=== PATIENT | female | born 1935 | race African-American/Black ===

== ENCOUNTER 2023-10-04 21:37 | Inpatient (IN) | payer MEDICARE ==
[2023-10-04] MEDS ORDERED: Acetaminophen 500 MG TAB ONE (22:04)
[2023-10-04 23:03] LABS: #Eosinphils 0.1 thou/uL (0.0-0.7); #Monocytes 0.4 thou/uL (0.11-0.59); #Neutrophils 5.3 thou/uL (1.40-6.50); %Basophils 0.6 % (0.0-1.0); %Eosinophils 1.1 % (0.0-10.0); %Lymphocytes 11.5 % (21.0-51.0); %Monocytes 5.9 % (0.0-10.0); %Neutrophils 80.6 % (42.0-75.0); Hematocrit 42.8 % (36.0-47.0); Hemoglobin 13.4 g/dL (12.0-16.0); Mean Corpuscular HGB CONC 31.3 g/dL (32.0-36.0); Mean Corpuscular Hemoglobin 28.8 pg (27.0-31.0); Mean Platelet Volume 10.1 fL (7.4-10.4); Platelet Count 253 10x3/uL (130-400); Red Blood Cell (RBC) Count 4.65 mill/uL (4.20-5.40); White Blood Cell (WBC) Count 6.6 10x3/uL (4.8-10.8)
[2023-10-04 23:17] LABS: ALT (SGPT) 13 U/L (8-55); AST (SGOT) 19 U/L (5-34); Albumin 3.9 g/dL (3.4-4.8); Alkaline Phosphatase 111 U/L (40-110); Anion Gap 16 mmol/L (10-20); BUN (Urea Nitrogen) 13 mg/dL (9.8-20.1); Bilirubin, Total 0.8 mg/dL (0.2-1.2); Calc. Creatinine Clearance 0 mL/min (70-130); Calcium 9.5 mg/dL (7.8-10.44); Carbon Dioxide 25 mmol/L (23-31); Chloride 106 mmol/L (98-107); Estimated GFR 48; Globulin 3.2 g/dL (2.4-3.5); Glucose 105 mg/dL (83-110); Potassium 4.6 mmol/L (3.5-5.1); Protein, Total 7.1 g/dL (5.8-8.1); Sodium 142 mmol/L (136-145)
[2023-10-04 23:18] LABS: Troponin I Less than 0.010 ng/mL (< 0.028)
[2023-10-05] MEDS ORDERED: Acetaminophen 325 MG TAB PO PRN (00:45)
[2023-10-05] MEDS ORDERED: Ondansetron PF 4 MG/2 ML Vial IVP PRN (00:45)
[2023-10-05] MEDS ORDERED: Ondansetron ODT 4 MG TAB SL PRN (00:45)
[2023-10-05] MEDS ORDERED: Acetaminophen 650 MG Suppository PR PRN (01:13)
[2023-10-05 03:13] LABS: #Monocytes 0.3 thou/uL (0.11-0.59); #Neutrophils 4.7 thou/uL (1.40-6.50); %Basophils 0.3 % (0.0-1.0); %Eosinophils 0.5 % (0.0-10.0); %Lymphocytes 15.2 % (21.0-51.0); %Neutrophils 78.7 % (42.0-75.0); Hematocrit 38.4 % (36.0-47.0); Hemoglobin 12.3 g/dL (12.0-16.0); Mean Corpuscular Hemoglobin 29.1 pg (27.0-31.0); Platelet Count 234 10x3/uL (130-400); Red Blood Cell (RBC) Count 4.22 mill/uL (4.20-5.40)
[2023-10-05 03:40] LABS: Troponin I Less than 0.010 ng/mL (< 0.028)
[2023-10-05 03:51] LABS: Anion Gap 7 mmol/L (10-20); BUN (Urea Nitrogen) 11 mg/dL (9.8-20.1); Calc. Creatinine Clearance 0 mL/min (70-130); Calcium 8.7 mg/dL (7.8-10.44); Carbon Dioxide 28 mmol/L (23-31); Chloride 110 mmol/L (98-107); Estimated GFR 66; Glucose 100 mg/dL (83-110); Potassium 3.8 mmol/L (3.5-5.1); Sodium 141 mmol/L (136-145)
[2023-10-05 05:04] LABS: Troponin I Less than 0.010 ng/mL (< 0.028)
[2023-10-05] MEDS ORDERED: Famotidine 20 MG TAB ONE (08:19)
[2023-10-05] MEDS: Famotidine 20 MG TAB PO SCH ×2 (08:54→20:54)
[2023-10-05] MEDS: Donepezil HCl 5 MG TAB PO SCH (10:08)
[2023-10-05 14:23] VITALS: BMI 28.5
[2023-10-05] MEDS ORDERED: Losartan 25 MG TAB PO SCH (16:00)
[2023-10-05] MEDS ORDERED: hydrALAZINE 20 MG/ML VIAL SLOW IVP PRN (20:23)
[2023-10-05] MEDS: traZODone HCl 50 MG TAB PO SCH (20:54)
[2023-10-05] MEDS: Melatonin 3 MG TAB PO SCH (20:56)
[2023-10-05] MEDS: Amlodipine 10 MG TAB PO SCH (20:57)
[2023-10-05 21:36] LABS: Bacteria/HPF 2+ HPF (None Seen); Bilirubin Negative (Negative); Blood, Urine Negative (Negative); CAUTI Indications for Culture Alt mental st,lethar; Clarity Clear (Clear); Glucose, Urine (Dipstick) Normal (Negative); Ketone, Urine Negative (Negative); Leukocyte 500 Leu/uL (Negative); Nitrite Negative (Negative); Protein, Urine (Dipstick) Negative (Neg-Trace); Specific Gravity, Urine 1.019 (1.002-1.036); WBC/HPF 21-50 HPF (0-3)
[2023-10-05 21:37] LABS: Urine Culture Reflex Yes Yes
[2023-10-06] MEDS ORDERED: FLU VACC QS2023(65UP)/MF59C/PF 60 MCG/0.5 ML SYRINGE IM ONE (09:00)
[2023-10-06] MEDS ORDERED: Losartan 25 MG TAB PO SCH (09:00)
[2023-10-06] MEDS: Donepezil HCl 5 MG TAB PO SCH (09:19)
[2023-10-06] MEDS: Famotidine 20 MG TAB PO SCH ×2 (09:19→20:39)
[2023-10-06 09:57] LABS: Hemoglobin 14.4 g/dL (12.0-16.0); Manual Diff?? YES; Mean Corpuscular Hemoglobin 29.3 pg (27.0-31.0); Mean Corpuscular Volume 97.6 fl (78.0-98.0); Mean Platelet Volume 10.5 fL (7.4-10.4); Platelet Count 223 10x3/uL (130-400); RBC Distribution Width 13.1 % (11.5-14.5); Red Blood Cell (RBC) Count 4.92 mill/uL (4.20-5.40); White Blood Cell (WBC) Count 4.5 10x3/uL (4.8-10.8)
[2023-10-06 10:13] LABS: Delete Auto Diff?? YES
[2023-10-06 10:27] LABS: Calcium 9.5 mg/dL (7.8-10.44); Chloride 111 mmol/L (98-107); Potassium 5.1 mmol/L (3.5-5.1); Sodium 140 mmol/L (136-145)
[2023-10-06 10:28] LABS: Glucose 71 mg/dL (83-110)
[2023-10-06 10:29] LABS: Anion Gap 20 mmol/L (10-20); Carbon Dioxide 14 mmol/L (23-31)
[2023-10-06 10:31] LABS: Calc. Creatinine Clearance 46 mL/min (70-130); Estimated GFR 58
[2023-10-06 10:32] LABS: BUN (Urea Nitrogen) 10 mg/dL (9.8-20.1)
[2023-10-06 10:50] LABS: Band 6 % (5-11); Lymphocytes 38 % (21-51); Monocytes 3 % (0-10); Neutrophil 53 % (42-75)
[2023-10-06 10:51] LABS: Platelet Adequacy Comment Appears Adequate
[2023-10-06 10:52] LABS: Ovalocytes MODERATE= 6-15 cells (100X) (0-1/hpf)
[2023-10-06] MEDS: Melatonin 3 MG TAB PO SCH (20:38)
[2023-10-06] MEDS: Amlodipine 10 MG TAB PO SCH (20:39)
[2023-10-06] MEDS: traZODone HCl 50 MG TAB PO SCH (20:39)
[2023-10-07 05:22] LABS: Anion Gap 9 mmol/L (10-20); BUN (Urea Nitrogen) 10 mg/dL (9.8-20.1); Calc. Creatinine Clearance 46 mL/min (70-130); Carbon Dioxide 27 mmol/L (23-31); Chloride 107 mmol/L (98-107); Estimated GFR 58; Glucose 79 mg/dL (83-110); Potassium 3.3 mmol/L (3.5-5.1); Sodium 140 mmol/L (136-145)
[2023-10-07] MEDS ORDERED: Potassium Chloride 20 MEQ TAB PO SCH (08:15)
[2023-10-07] MEDS: Losartan 25 MG TAB PO SCH (08:36)
[2023-10-07] MEDS: Famotidine 20 MG TAB PO SCH ×2 (08:36→21:17)
[2023-10-07] MEDS: Donepezil HCl 5 MG TAB PO SCH (08:36)
[2023-10-07] MEDS: Melatonin 3 MG TAB PO SCH (21:17)
[2023-10-07] MEDS: traZODone HCl 50 MG TAB PO SCH (21:17)
[2023-10-07] MEDS: Amlodipine 10 MG TAB PO SCH (21:17)
[2023-10-08] MEDS: Donepezil HCl 5 MG TAB PO SCH (08:08)
[2023-10-08] MEDS: Famotidine 20 MG TAB PO SCH (08:08)
[2023-10-08] MEDS: Losartan 25 MG TAB PO SCH (08:08)
[2023-10-08 16:05] VITALS: BP 145/67; TEMP 98.2
[2023-10-09] MEDS ORDERED: Famotidine 20 MG TAB PO SCH (09:00)
== END 2023-10-08 18:00 | DRG 310 ==
LOC: ERS 21:37 → ERHOLD 10-05 00:33 → 2NO 10-05 14:16 → OBSVTOIN 10-06 11:17
PROVIDERS: ADMIT Student in an Organized Health Care Education/Training Program; ATTEND Nurse Practitioner Family
DX: R00.1 Bradycardia, unspecified (principal); I12.9 Hypertensive chronic kidney disease with stage 1 through stage 4 chronic kidney disease, or unspecified chronic kidney disease; M19.90 Unspecified osteoarthritis, unspecified site; N18.9 Chronic kidney disease, unspecified; G30.9 Alzheimer's disease, unspecified; Z79.899 Other long term (current) drug therapy; Z85.3 Personal history of malignant neoplasm of breast; F02.80 Dementia in other diseases classified elsewhere, unspecified severity, without behavioral disturbance, psychotic disturbance, mood disturbance, and anxiety
CPT/HCPCS: 36415; 71045; 80048; 80053; 81001; 83880; 84443; 84484; 85025; 87086; 93005; 93306; 94760; 96360; 96361; 96374; G0378; J0360

== ENCOUNTER 2023-11-19 13:50 | Inpatient (IN) | payer MEDICARE ==
[2023-11-19] MEDS ORDERED: Bisacodyl 10 MG SUPP PR PRN (14:06)
[2023-11-19] MEDS ORDERED: Acetaminophen 325 MG TAB PO PRN (14:06)
[2023-11-19] MEDS ORDERED: Senokot S 8.6-50 MG TAB PO PRN (14:06)
[2023-11-19] MEDS ORDERED: Ondansetron PF 4 MG/2 ML Vial IVP PRN (14:06)
[2023-11-19] MEDS ORDERED: Bisacodyl 5 MG TAB PO PRN (14:06)
[2023-11-19] MEDS: FLU VACC QS2023(65UP)/MF59C/PF 60 MCG/0.5 ML SYRINGE IM ONE (15:52)
[2023-11-19 16:17] LABS: Hematocrit 38.7 % (36.0-47.0); Hemoglobin 12.4 g/dL (12.0-16.0); Mean Corpuscular Hemoglobin 28.8 pg (27.0-31.0); Mean Corpuscular Volume 89.8 fl (78.0-98.0); Mean Platelet Volume 9.8 fL (7.4-10.4); Platelet Count 249 10x3/uL (130-400); RBC Distribution Width 12.7 % (11.5-14.5); Red Blood Cell (RBC) Count 4.31 mill/uL (4.20-5.40); White Blood Cell (WBC) Count 5.5 10x3/uL (4.8-10.8)
[2023-11-19 16:34] LABS: ALT (SGPT) 9 U/L (8-55); AST (SGOT) 13 U/L (5-34); Albumin 3.8 g/dL (3.4-4.8); Alkaline Phosphatase 98 U/L (40-110); Anion Gap 14 mmol/L (10-20); BUN (Urea Nitrogen) 13 mg/dL (9.8-20.1); Bilirubin, Direct 0.4 mg/dL (0.1-0.3); Bilirubin, Total 1.3 mg/dL (0.2-1.2); Calc. Creatinine Clearance 33 mL/min (70-130); Calcium 9.5 mg/dL (7.8-10.44); Carbon Dioxide 21 mmol/L (23-31); Chloride 110 mmol/L (98-107); Estimated GFR 44; Globulin 3.1 g/dL (2.4-3.5); Glucose 87 mg/dL (83-110); Potassium 3.2 mmol/L (3.5-5.1); Protein, Total 6.9 g/dL (5.8-8.1); Sodium 142 mmol/L (136-145)
[2023-11-19 16:39] LABS: INR-International Normal Ratio 1.1; PTT 34.3 sec (22.9-36.1); Prothrombin Time 14.3 sec (12.0-14.7)
[2023-11-19 16:45] LABS: Troponin I 0.022 ng/mL (< 0.028)
[2023-11-19] MEDS: Potassium Chloride 20 MEQ TAB PO SCH (18:28)
[2023-11-19] MEDS: Potassium Chloride 20 MEQ in Premix 1 BAG IVPB SCH (20:41)
[2023-11-19] MEDS: Melatonin 3 MG TAB PO SCH (20:41)
[2023-11-19] MEDS: Nystatin Powder 15 GM BOT TOP SCH (21:57)
[2023-11-19] MEDS: Amlodipine 10 MG TAB PO SCH (21:58)
[2023-11-19] MEDS: Losartan 25 MG TAB PO SCH (21:58)
[2023-11-19] MEDS: Potassium Bicarbonate/Cit Ac 25 MEQ TAB PO SCH (21:59)
[2023-11-20 05:57] LABS: #Eosinphils 0.1 thou/uL (0.0-0.7); #Monocytes 0.6 thou/uL (0.11-0.59); #Neutrophils 2.7 thou/uL (1.40-6.50); %Basophils 0.4 % (0.0-1.0); %Lymphocytes 25.2 % (21.0-51.0); %Monocytes 12.5 % (0.0-10.0); %Neutrophils 58.7 % (42.0-75.0); Hematocrit 37.5 % (36.0-47.0); Hemoglobin 12.2 g/dL (12.0-16.0); Mean Corpuscular HGB CONC 32.5 g/dL (32.0-36.0); Mean Corpuscular Hemoglobin 29.3 pg (27.0-31.0); Mean Corpuscular Volume 90.1 fl (78.0-98.0); Mean Platelet Volume 9.7 fL (7.4-10.4); Platelet Count 218 10x3/uL (130-400); RBC Distribution Width 12.8 % (11.5-14.5); Red Blood Cell (RBC) Count 4.16 mill/uL (4.20-5.40); White Blood Cell (WBC) Count 4.7 10x3/uL (4.8-10.8)
[2023-11-20 06:13] LABS: ALT (SGPT) 8 U/L (8-55); AST (SGOT) 14 U/L (5-34); Albumin 3.5 g/dL (3.4-4.8); Alkaline Phosphatase 90 U/L (40-110); Anion Gap 15 mmol/L (10-20); BUN (Urea Nitrogen) 13 mg/dL (9.8-20.1); Bilirubin, Direct 0.4 mg/dL (0.1-0.3); Bilirubin, Total 1.3 mg/dL (0.2-1.2); Calc. Creatinine Clearance 36 mL/min (70-130); Calcium 9.3 mg/dL (7.8-10.44); Carbon Dioxide 23 mmol/L (23-31); Cardiac Risk 4.7 (Less than 4.5); Chloride 107 mmol/L (98-107); Cholesterol 200 mg/dl (< 200 Desired); Estimated GFR 54; Glucose 76 mg/dL (83-110); HDL Cholesterol 43 mg/dL (>60 Neg Risk); LDL Cholesterol, Calculated 142 mg/dL; Magnesium 1.9 mg/dL (1.6-2.6); Potassium 3.9 mmol/L (3.5-5.1); Protein, Total 6.3 g/dL (5.8-8.1); Sodium 141 mmol/L (136-145); Triglycerides 76 mg/dL (Less than 150)
[2023-11-20 06:21] LABS: Hemoglobin A1c 5.7 % (4.0-6.0)
[2023-11-20] MEDS: Amlodipine 10 MG TAB PO SCH (08:56)
[2023-11-20] MEDS: Losartan 25 MG TAB PO SCH (08:56)
[2023-11-20] MEDS: Donepezil HCl 5 MG TAB PO SCH (08:56)
[2023-11-20] MEDS: Enoxaparin 40 MG (0.4 mL) SYRINGE SC SCH (08:57)
[2023-11-20] MEDS: Magnesium Oxide 400 MG TAB PO SCH (09:57)
[2023-11-20 15:33] VITALS: BMI 23.3
[2023-11-20] MEDS: Famotidine 20 MG TAB PO SCH (20:36)
[2023-11-21 05:14] LABS: #Eosinphils 0.1 thou/uL (0.0-0.7); #Monocytes 0.4 thou/uL (0.11-0.59); #Neutrophils 2.1 thou/uL (1.40-6.50); %Basophils 0.7 % (0.0-1.0); %Eosinophils 3.5 % (0.0-10.0); %Lymphocytes 32.3 % (21.0-51.0); %Monocytes 10.9 % (0.0-10.0); %Neutrophils 52.4 % (42.0-75.0); Hematocrit 37.4 % (36.0-47.0); Hemoglobin 11.9 g/dL (12.0-16.0); Mean Corpuscular HGB CONC 31.8 g/dL (32.0-36.0); Mean Corpuscular Hemoglobin 28.2 pg (27.0-31.0); Mean Corpuscular Volume 88.6 fl (78.0-98.0); Mean Platelet Volume 9.9 fL (7.4-10.4); Platelet Count 237 10x3/uL (130-400); Red Blood Cell (RBC) Count 4.22 mill/uL (4.20-5.40)
[2023-11-21 05:46] LABS: Anion Gap 13 mmol/L (10-20); BUN (Urea Nitrogen) 13 mg/dL (9.8-20.1); Calc. Creatinine Clearance 34 mL/min (70-130); Calcium 9.4 mg/dL (7.8-10.44); Carbon Dioxide 26 mmol/L (23-31); Chloride 106 mmol/L (98-107); Estimated GFR 50; Glucose 68 mg/dL (83-110); Potassium 3.5 mmol/L (3.5-5.1); Sodium 141 mmol/L (136-145)
[2023-11-21 06:05] LABS: HIV (1/2) Antibody/Antigen Non-Reactive (NonReactive); HIV 1/2 INDEX 0.22 S/CO (<1.00)
[2023-11-21 06:11] LABS: Vitamin B12 345 pg/mL (211-911)
[2023-11-21 11:48] LABS: Syphilis Antibody Nonreactive (Nonreactive); Syphilis Antibody Index 0.12 S/CO (<1.00 Non-Reactive)
[2023-11-21 15:51] VITALS: BP 138/61; TEMP 97.7
== END 2023-11-21 16:03 | DRG 641 ==
LOC: 2NO 13:50 → OBSVTOIN 11-20 14:51
PROVIDERS: ADMIT Family Medicine; ATTEND Family Medicine
DX: E86.9 Volume depletion, unspecified (principal); I13.0 Hypertensive heart and chronic kidney disease with heart failure and stage 1 through stage 4 chronic kidney disease, or unspecified chronic kidney disease; N17.9 Acute kidney failure, unspecified; I50.32 Chronic diastolic (congestive) heart failure; Z66 Do not resuscitate; N18.30 Chronic kidney disease, stage 3 unspecified; G30.9 Alzheimer's disease, unspecified; F02.80 Dementia in other diseases classified elsewhere, unspecified severity, without behavioral disturbance, psychotic disturbance, mood disturbance, and anxiety; G47.00 Insomnia, unspecified; M19.90 Unspecified osteoarthritis, unspecified site; W19.XXXA Unspecified fall, initial encounter; E87.6 Hypokalemia; Z85.3 Personal history of malignant neoplasm of breast
CPT/HCPCS: 36415; 80048; 80061; 80076; 82607; 83036; 83735; 84443; 85025; 85379; 85610; 85730; 86780; 86850; 86900; 86901; 87389; 90471; 90694; 93005; 93010; 94760; G0008; J1650; J3480